=== PATIENT | male | born 1970 | race Caucasian/White ===

== ENCOUNTER 2017-11-25 08:57 | Emergency (ER) | payer OTHER ==
[~2017-11-25] VITALS: Ht 170.2 cm; Wt 78.0 kg
[2017-11-25 08:57] VITALS: BP_SYST 124
[2017-11-25] MEDS ORDERED: NACL 0.9% 1,000 ML IV ONE (09:04)
[2017-11-25] MEDS ORDERED: MECLIZINE HCL 25 MG TABLET (ANITVERT) PO ONE (09:15)
[2017-11-25 09:29] LABS: EOSINOPHILS # (AUTO) 0.1 K/uL (0.0-0.4); HEMATOCRIT 43.9 % (36-54); HEMOGLOBIN 14.3 g/dL (14.0-18.0); LYMPHOCYTES # (AUTO) 2.4 K/uL (1.0-5.5); LYMPHOCYTES % (AUTO) 52.4 % (20.5-51.5); MEAN CORPUSCULAR HEMOGLOBIN 28 pg (27-31); MEAN CORPUSCULAR HGB CONC 33 % (32-36); MEAN CORPUSCULAR VOLUME 86 fL (79.0-98.0); MONOCYTES # (AUTO) 0.4 K/uL (0.0-1.0); PLATELET COUNT (AUTO) 295 K/uL (130-430); RED BLOOD CELL COUNT(AUTO) 5.09 MIL/uL (4.2-6.2); RED CELL DISTRIBUTION WIDTH 12.9 % (9.0-15.0); WHITE BLOOD COUNT (AUTO) 4.7 K/uL (4.8-10.8)
[2017-11-25 09:34] LABS: BASOPHILS % (AUTO) 0.7 % (0.0-2.0); NEUTROPHILS # (AUTO) 1.8 K/uL (1.8-7.7); NEUTROPHILS % (AUTO) 36.9 % (40.0-70.0)
[2017-11-25 09:43] LABS: CALCIUM 9.2 mg/dL (8.4-11.0); CREATININE 1.14 mg/dL (0.55-1.30)
[2017-11-25 09:45] LABS: INR 1.1 (0.80-1.20); PROTHROMBIN TIME 11.4 SECS (9.5-12.5)
[2017-11-25 09:47] LABS: ALBUMIN 3.9 g/dL (3.4-4.8); TOTAL BILIRUBIN 0.6 mg/dL (0.0-1.0)
[2017-11-25 09:57] LABS: BILIRUBIN,URINE NEGATIVE (NEGATIVE); BLOOD, URINE NEGATIVE (NEGATIVE); CLARITY/URINE SL HAZY (CLEAR); COLOR,URINE YELLOW (YELLOW); GLUCOSE,URINE NEGATIVE (NEGATIVE); KETONES,URINE NEGATIVE (NEGATIVE); LEUKOCYTE ESTERASE ,URINE NEGATIVE (NEGATIVE); NITRITE, URINE NEGATIVE (NEGATIVE); PROTEIN URINE NEGATIVE (NEGATIVE); UROBILINOGEN,URINE 0.2 (0.2-1.0)
[2017-11-25] MEDS ORDERED: ONDANSETRON HCL 4 MG/2 ML VIAL IVP ONE (10:00)
[2017-11-25 11:25] VITALS: BP_SYST 122
== END 2017-11-25 11:25 | disposition home or self-care (01) ==
LOC: SED 08:57
DX: R42 Dizziness and giddiness (principal); R03.0 Elevated blood-pressure reading, without diagnosis of hypertension
CPT/HCPCS: 36415; 71045; 80053; 81003; 82150; 83690; 85025; 85610; 85730; 93005; 96361; 96374; 99285; J2405; J7030; J8597